=== PATIENT | born 1970 | race Caucasian/White ===

== ENCOUNTER → 2020-04-20 13:49 | Outpatient (CLI) | payer BC, SELFPAY ==
[2020-04-20] MEDS: COVID-19 VACC #1, MRNA(MOD) 100 MCG/0.5 ML VIAL IM (13:58)
== END ==
PROVIDERS: Visit Provider Internal Medicine
DX: Z23 Encounter for immunization (principal)
CPT/HCPCS: 0011A; 91301

== ENCOUNTER → 2020-05-18 13:39 | Outpatient (CLI) | payer BC, SELFPAY ==
[2020-05-18] MEDS: COVID-19 VACC #2, MRNA(MOD) 100 MCG/0.5 ML VIAL IM (13:45)
== END ==
PROVIDERS: Visit Provider Internal Medicine
DX: Z23 Encounter for immunization (principal)
CPT/HCPCS: 0012A; 91301